=== PATIENT | female | born 1995 | race Caucasian/White ===

== ENCOUNTER 2017-02-15 09:40 | Emergency (ER) | payer SELFPAY ==
[~2017-02-15] VITALS: Ht 165.1 cm; Wt 94.0 kg
[~2017-02-15 09:40] MED LIST: IBUP400T22 PO; NITR-58 PO
[2017-02-15 09:41] VITALS: Ht 165.1 cm; Wt 94.0 kg
[2017-02-15 11:17] LABS: ADD UMIC NO; UR ASCORBIC ACID NEGATIVE (NEGATIVE); UR BILIRUBIN (Dip) NEGATIVE (NEGATIVE); UR BLOOD (Dip) NEGATIVE (NEGATIVE); UR CLARITY CLEAR (CLEAR); UR COLOR YELLOW (YELLOW); UR GLUCOSE (Dip) NEGATIVE (NEGATIVE); UR KETONES (Dip) NEGATIVE (NEGATIVE); UR LEUKOCYTE ESTERASE (Dip) NEGATIVE Leu/ul (NEGATIVE); UR NITRITE (Dip) NEGATIVE (NEGATIVE); UR SPECIFIC GRAVITY (Dip) 1.024 (1.003-1.030); UR TOTAL PROTEIN (Dip) NEGATIVE (NEGATIVE); UR UROBILINOGEN (Dip) NEGATIVE (NEGATIVE)
[2017-02-15 11:29] LABS: BASOPHILS % 0.2 % (0.0-2.0); EOSINOPHILS # 0.1 10^3/ul (0.0-0.5); EOSINOPHILS % 0.7 % (0.0-7.0); HEMATOCRIT 35.5 % (37.0-47.0); HEMOGLOBIN 12.5 g/dl (12.0-16.0); LYMPHOCYTES # 1.5 10^3/ul (0.8-2.9); LYMPHOCYTES % 15.4 % (18.0-55.0); MEAN CORPUSCULAR HEMOGLOBIN 29.1 pg (29.0-33.0); MEAN CORPUSCULAR HGB CONC 35.2 g/dl (32.0-37.0); MEAN CORPUSCULAR VOLUME 82.8 fl (72.0-104.0); MEAN PLATELET VOLUME 9.8 fl (7.4-10.4); MONOCYTE # 0.5 10^3/ul (0.3-0.9); MONOCYTES % 5.6 % (0.0-13.0); NEUTROPHIL # 7.4 10^3/ul (1.6-7.5); NEUTROPHILS % 77.4 % (30.0-74.0); PLATELET COUNT 304 10^3/UL (140-415); RED BLOOD COUNT 4.29 10^6/ul (4.20-5.40); WHITE BLOOD COUNT 9.5 10^3/ul (4.8-10.8)
[2017-02-15 11:46] LABS: ALBUMIN 3.8 g/dl (3.3-4.9); ALBUMIN/GLOBULIN RATIO 0.97; BILIRUBIN,INDIRECT 0.1 mg/dl (0-1.1); BILIRUBIN,TOTAL 0.1 mg/dl (0.2-1.3); CALCIUM 9.4 mg/dl (8.4-10.2); CREATININE 0.57 mg/dl (0.44-1.00); POTASSIUM 3.6 mmol/L (3.5-5.1); TOTAL PROTEIN 7.7 g/dl (6.1-8.1)
--- NOTE | 2017-02-15 13:11 | RADRPT ---
PROCEDURE: US Obstetrical 1st Trimester CLINICAL INDICATION: Pain TECHNIQUE: Multiple real-time images were acquired of the patient's maternal abdomen utilizing a curved array transducer. COMPARISON: None available FINDINGS: There is a single live intrauterine fetus with a heart rate of 148 beats per minute. Measurements: BPD - 2.81 cm - 15 weeks 0 days Head circumference - 10.44 cm - 15 weeks 0 days Abdominal circumference - 9.19 cm - 15 weeks 3 days Femoral length - 1.54 cm - 14 weeks 4 days These measurements average to a gestational age of 15 weeks 0 days plus or minus 1 week. The placenta is implanted anteriorly and is grade 0. There is no evidence of placenta previa. The cervix measures 4.9 cm in length. A 2.1 cm in maximal diameter cyst is seen within the right ovary. The left ovary appears normal. IMPRESSION: 1. Single live intrauterine fetus which by ultrasound corresponds to a gestational age of 15 weeks 0 days plus or minus 1 week. The estimated weight is 111 g. The estimated date of delivery based on vickie jolene's sonogram is 08/09/2017. 2. Anterior placenta, grade 00, no previa. 3. 2.1 cm right ovarian cyst. Physician Prisca Date Time Electronically viewed and signed by Physician Prisca on 02/15/2017 13:01 /
[2017-02-15] MEDS ORDERED: PNV11TAB PO (13:16)
[2017-02-15] MEDS ORDERED: PREN-19 PO (13:17)
--- NOTE | 2017-02-15 13:20 | ERD ---
ER Documentation Chief Complaint Chief Complaint abdominal pain x 2 weeks HPI -year-old female presents with approximately 3 week history of intermittent migratory abdominal pain. She has nausea and vomiting nonbilious nonbloody as well. She denies although her last menstrual period was approximately 3 months ago but she is irregular. Denies fevers or urinary complaints. ROS All systems reviewed and are negative except as per history of present illness. Medications Home Meds Active Scripts Vit #76/Iron,Carb/FA (Prenatabs Rx Tablet) 1 Each Tablet, 1 EACH PO qday, #100 TAB Prov:PRISCILA EWING MD 02/15/17 [id number] ( 19) 1 Each Tablet, 1 TAB PO DAILY, #100 TAB Prov:PRISCILA EWING MD 02/15/17 Nitrofurantoin Monohyd Macrocr* (Macrobid*) 100 Mg Capsr, 100 MG PO BID for 5 Days, CAP Prov:SENA DONIS NP 06/04/15 Ibuprofen* (Ibuprofen*) 400 Mg Tablet, 400 MG PO QID, #30 TAB Prov:CHERYL KEEN NP 12/04/14 Reported Medications [None] No Conflict Check 03/31/09 Allergies Allergies: Coded Allergies: No Known Allergy (Unverified , 02/15/17) PMhx/Soc Medical and Surgical Hx: pt denies Surgical Hx History of Surgery: No Anesthesia Reaction: No Hx Neurological Disorder: No Hx Respiratory Disorders: Yes (ASTHMA) Hx Cardiac Disorders: No Hx Psychiatric Problems: No Hx Miscellaneous Medical Probl: No Hx Alcohol Use: No Hx Substance Use: No Hx Tobacco Use: No Smoking Status: Never smoker Physical Exam Vitals Vital Signs Date Time Temp Pulse Resp B/P Pulse Ox O2 Delivery O2 Flow Rate FiO2 02/15/17 09:41 97.8 99 18 130/68 98 Physical Exam Const: [] Alert, not ill-appearing. Head: Atraumatic Eyes: Normal Conjunctiva ENT: Normal External Ears, Nose and Mouth. Neck: Full range of motion..~ No meningismus. Resp: Clear to auscultation bilaterally Cardio: Regular rate and rhythm, no murmurs Abd: Soft, minimal tenderness but not localized. Possibly in the bilateral lower quadrants central abdomen. No gross tenderness at McBurney's point no Thomas sign. No rebound. non distended. Normal bowel sounds Skin: No petechiae or rashes Back: No midline or flank tenderness Ext: No cyanosis, or edema Neur: Awake and alert Psych: Normal Mood and Affect Result Diagram: 02/15/17 1115 02/15/17 1115 Results 24 hrs Laboratory Tests Test 02/15/17 11:00 02/15/17 11:15 Urine Color YELLOW Urine Clarity CLEAR Urine pH 6.0 Urine Specific Sachse 1.024 Urine Ketones NEGATIVEmg/dL Urine Nitrite NEGATIVEmg/dL Urine Bilirubin NEGATIVEmg/dL Urine Urobilinogen NEGATIVEmg/dL Urine Leukocyte Esterase NEGATIVELeu/ul Urine Hemoglobin NEGATIVEmg/dL Urine Glucose NEGATIVEmg/dL Urine Total Protein NEGATIVEmg/dl White Blood Count 9.510^3/ul Red Blood Count 4.2910^6/ul Hemoglobin 12.5g/dl Hematocrit 35.5% Mean Corpuscular Volume 82.8fl Mean Corpuscular Hemoglobin 29.1pg Mean Corpuscular Hemoglobin Concent 35.2g/dl Red Cell Distribution Width 13.0% Platelet Count 03525^3/UL Mean Platelet Volume 9.8fl Neutrophils % 77.4% Lymphocytes % 15.4% Monocytes % 5.6% Eosinophils % 0.7% Basophils % 0.2% Nucleated Red Blood Cells % 0.0/100WBC Neutrophils # 7.410^3/ul Lymphocytes # 1.510^3/ul Monocytes # 0.510^3/ul Eosinophils # 0.110^3/ul Basophils # 0.010^3/ul Nucleated Red Blood Cells # 0.010^3/ul Sodium Level 139mmol/L Potassium Level 3.6mmol/L Chloride Level 106mmol/L Carbon Dioxide Level 24mmol/L Anion Gap 13 Blood Urea Nitrogen 9mg/dl Creatinine 0.57mg/dl Glucose Level 91mg/dl Calcium Level 9.4mg/dl Total Bilirubin 0.1mg/dl Direct Bilirubin 0.00mg/dl Indirect Bilirubin 0.1mg/dl Aspartate Amino Transf (AST/SGOT) 18IU/L Alanine Aminotransferase (ALT/SGPT) 26IU/L Alkaline Phosphatase 77IU/L Total Protein 7.7g/dl Albumin 3.8g/dl Globulin 3.90g/dl Albumin/Globulin Ratio 0.97 Lipase 66U/L Beta HCG, Quantitative 81365.0mIU/ml Procedures/MDM Patient has a positive urine test. Urinalysis negative. CBC shows no leukocytosis. CMP was normal. Pelvic ultrasound shows approximately 15 week intrauterine with 2 cm right ovarian cyst otherwise no acute findings. Patient presents with two-week history of lower abdominal pain and nausea with incidental finding of 15 week . This may explain many of her symptoms. Currently signs or symptoms do not suggest appendicitis, UTI, ectopic , additional emergent causes of presenting complaints. She will treated with primary care and OB follow-up and vitamins and return precautions. The patient was stable with no new complaints during the ER course. Clinically, there is no current evidence to suggest meningitis, sepsis, acute abdomen, pneumonia, acute coronary syndrome, pulmonary embolism, or any other emergent condition appearing to require further evaluation or hospitalization. The patient should certainly return for any new or worsening symptoms per the aftercare instructions. They should otherwise follow-up with her primary care doctor for reevaluation this week. Departure Diagnosis: Primary Impression: Weeks of gestation: 15 weeks Qualified Code: Z3A.15 - 15 weeks gestation of Additional Impression: Abdominal pain Abdominal location: unspecified location Qualified Code: R10.9 - Abdominal pain, unspecified abdominal location Condition: Stable Patient Instructions: Abdominal Pain, Early Referrals: [facility] [place] [address] [facility] [address] [place], [place] [id number] OFFICE FAX DR[address]US[facility] [address] [place] [place] [id number] [facility] [address] [place] [id number] [place] [address] [facility] [id number] [address] [address] [place], [place] [phone] [facility] [address] [place] [phone] [facility] [id number] [address] STEINER, GRACE [address] [facility] [address] [address] KEE, RAFFAELE [address] [facility]. [address], [facility] [address] [address] LIN, [facility] [address] [place], [place] [phone] Additional Instructions: Ultrasound shows approximately 15 week without complications. She will be for follow-up. Recheck for bleeding, new or worsening symptoms. PRISCILA EWING MD Feb 15, 2017 13:20
== END 2017-02-15 14:12 | disposition home or self-care (01) ==
LOC: FTE 09:40
DX: O26.892 Other specified pregnancy related conditions, second trimester (principal); R10.31 Right lower quadrant pain; R10.32 Left lower quadrant pain; R10.2 Pelvic and perineal pain; Z3A.15 15 weeks gestation of pregnancy
CPT/HCPCS: 36415; 76805; 80053; 81003; 83690; 84702; 85025

== ENCOUNTER 2017-07-07 19:12 | Outpatient (CLI) | END 2017-07-08 00:20 | disposition home or self-care (01) ==

== ENCOUNTER 2017-07-29 21:33 | Outpatient (CLI) | END 2017-07-29 23:18 | disposition home or self-care (01) ==

== ENCOUNTER 2018-07-14 21:22 | Emergency (ER) | payer SELFPAY ==
[~2018-07-14] VITALS: Ht 165.1 cm; Wt 97.3 kg
[~2018-07-14 21:22] MED LIST changes: -IBUP400T22 PO; -NITR-58 PO; +PNV11TAB PO; +PREN-19 PO
[2018-07-14 21:25] VITALS: BP 166/83; PULSE 86; RESP 19; Ht 165.1 cm; Wt 97.3 kg
== END 2018-07-15 01:50 | disposition left against medical advice (07) ==
LOC: FTE 21:22
DX: Z53.21 Procedure and treatment not carried out due to patient leaving prior to being seen by health care provider (principal)